=== PATIENT | male | born 1965 | race African-American/Black ===

== ENCOUNTER 2017-05-31 09:03 | Emergency (ER) | payer OTHER, SELFPAY ==
[2017-05-31 11:04] LABS: #Basophils 0.1 thou/uL (0.0-0.2); #Eosinphils 0.1 thou/uL (0.0-0.7); #Monocytes 0.5 thou/uL (0.11-0.59); #Neutrophils 4.4 thou/uL (1.40-6.50); %Basophils 1.1 % (0.0-1.0); %Eosinophils 1.3 % (0.0-10.0); %Lymphocytes 37.3 % (21.0-51.0); %Monocytes 6.6 % (0.0-10.0); %Neutrophils 53.7 % (42.0-75.0); Hemoglobin 16.7 g/dL (14.0-18.0); Mean Corpuscular HGB CONC 32.4 g/dL (32.0-36.0); Mean Corpuscular Hemoglobin 30.2 pg (27.0-31.0); Mean Corpuscular Volume 93.4 fl (80.0-94.0); Mean Platelet Volume 8.5 fL (7.4-10.4); Platelet Count 208 thou/uL (130-400); RBC Distribution Width 12.5 % (11.5-14.5); Red Blood Cell (RBC) Count 5.53 mill/uL (4.70-6.10); White Blood Cell (WBC) Count 8.1 thou/uL (4.8-10.8)
[2017-05-31 11:14] LABS: ALT (SGPT) 26 U/L (8-55); AST (SGOT) 22 U/L (5-34); Albumin 4.6 g/dL (3.5-5.0); Alkaline Phosphatase 59 U/L (40-150); Anion Gap 11 mmol/L (10-20); BUN (Urea Nitrogen) 16 mg/dL (8.4-25.7); Bilirubin, Total 0.6 mg/dL (0.2-1.2); CK (CPK) 288 U/L (30-200); Calc. Creatinine Clearance 0 mL/min (70-130); Calcium 10.1 mg/dL (7.8-10.44); Carbon Dioxide 29 mmol/L (22-29); Chloride 99 mmol/L (98-107); Estimated GFR-MDRD Greater than 90; Globulin 3.2 g/dL (2.4-3.5); Glucose 116 mg/dL (70-105); Potassium 3.7 mmol/L (3.5-5.1); Protein, Total 7.8 g/dL (6.0-8.3); Sodium 135 mmol/L (136-145)
[2017-05-31 11:18] LABS: CKMB 2.3 ng/mL (0-6.6); Troponin I Less than 0.010 ng/mL (< 0.028)
== END 2017-05-31 13:47 | disposition home or self-care (01) ==
LOC: ERS 09:03
DX: M79.621 Pain in right upper arm (principal); R42 Dizziness and giddiness; T44.7X5A Adverse effect of beta-adrenoreceptor antagonists, initial encounter; I10 Essential (primary) hypertension; F17.210 Nicotine dependence, cigarettes, uncomplicated; Z79.899 Other long term (current) drug therapy; Z71.6 Tobacco abuse counseling
CPT/HCPCS: 36415; 80053; 82553; 83880; 84484; 85025; 93005; 99406

== ENCOUNTER 2018-03-29 06:58 | Outpatient (CLI) | payer BC ==
--- NOTE | 2018-03-29 08:02 | ULT ---
BILATERAL CAROTID DUPLEX ULTRASOUND: DATE: 03/29/18 HISTORY: 52-year-old male with left-sided carotid bruit. TECHNIQUE: Cardozo scale ultrasound with color flow and spectral Doppler imaging of the extracranial carotid artery systems performed bilaterally. FINDINGS: No significant plaque formation or intimal wall thickening is seen on either side. The peak systolic velocity in the right ICA measures 73 cm/second with an end-diastolic velocity of 1 1 cm/second and a systolic ratio of 0.71. The peak systolic velocity in the left ICA measures 79 cm/second with an end-diastolic velocity of 30 cm/second and a systolic ratio of 0.56. Flow in both vertebral arteries remains antegrade. IMPRESSION: No evidence of hemodynamically significant stenosis. POS: OFF
== END 2018-03-29 06:59 | disposition home or self-care (01) ==
LOC: BICULT 06:58
PROVIDERS: ATTEND Family Medicine
DX: R09.89 Other specified symptoms and signs involving the circulatory and respiratory systems (principal); R42 Dizziness and giddiness
CPT/HCPCS: 93880